=== PATIENT | female | born 1985 | race Caucasian/White ===

== ENCOUNTER 2024-07-29 06:45 | Day surgery (SDC) | payer BC ==
[2024-07-22 15:30] VITALS: BP 116/80
[~2024-07-29] VITALS: Ht 167.6 cm; Wt 73.9 kg
[~2024-07-29 06:45] MED LIST: DOXYCYCLINE HY100 MG PO; ISENTRESS400 MG PO; LACTATED RINGER'S 1,000 ML IV SCH; MOTRIN IB200 MG PO; MULTI VITAMIN1 EACH PO; NORCO 5-325 TA1 EACH PO; PRENATAL TABLE1 EAC1 PO; SYNTHROID50 MCG PO; TRUVADA 200 MG1 EACH PO
[2024-07-29 06:56] VITALS: BP 104/67
[2024-07-29] MEDS ORDERED: IBLOOD GLUCOSE TEST STRIP 1 EA TEST VI PRN ×2 (07:00→10:30)
[2024-07-29] MEDS ORDERED: METOCLOPRAMIDE HCL 10 MG/2 ML SDV IV SCH (07:00)
[2024-07-29] MEDS ORDERED: FAMOTIDINE 20 MG/ 2 ML VIAL IV SCH (07:00)
[2024-07-29] MEDS ORDERED: LIDOCAINE HCL 1% 5 ML SDV INJ ONE (07:00)
--- NOTE | 2024-07-29 07:14 | NUR ---
PT REQUESTED NO VISIT. DID NOT ENTER ROOM, PROVIDED PRAYER.
[2024-07-29] MEDS ORDERED: DEXAMETHASONE SOD PHOS 4 MG/ML VIAL ONE (07:55)
[2024-07-29] MEDS ORDERED: KETOROLAC TROMETHAMINE 30 MG/ML VIAL ONE (07:55)
[2024-07-29] MEDS ORDERED: MIDAZOLAM HCL 2 MG/2 ML VIAL ONE (07:55)
[2024-07-29] MEDS ORDERED: propofoL 200 MG/20 ML VIAL ONE (07:55)
[2024-07-29] MEDS ORDERED: ondansetron HCL 4 MG/2 ML VIAL ONE (07:55)
[2024-07-29] MEDS ORDERED: fentaNYL citrate 100 MCG/2 ML VIAL ONE (07:56)
[2024-07-29] MEDS ORDERED: SODIUM CHLORIDE 0.9% 20 ML IV ONE (07:57)
[2024-07-29] MEDS ORDERED: LIDOCAINE HCL 2% 5 ML SDV ONE (07:57)
[2024-07-29] MEDS ORDERED: SEVOFLURANE 250 ML BTL INH ONE (08:38)
[2024-07-29] MEDS ORDERED: ROCURONIUM BROMIDE 50 MG/5 ML SYR ONE (08:45)
[2024-07-29] MEDS ORDERED: SUGAMMADEX SODIUM 200 MG/2 ML ML ONE (08:45)
[2024-07-29] MEDS ORDERED: dexmedeTOMIDine HCl 200 MCG/2 ML VIAL ONE (08:48)
[2024-07-29] MEDS ORDERED: ePHEDrine sulfate 50 MG/ML AMP ONE (09:03)
[2024-07-29] MEDS ORDERED: KETAMINE in NS 50 MG/5 ML SYR ONE (09:20)
[2024-07-29] MEDS ORDERED: ACETAMINOPHEN 1,000 MG/100 ML VIAL ONE (10:01)
[2024-07-29] MEDS ORDERED: MORPHINE SULFATE 10 MG/ML VIAL IV PRN (10:15)
[2024-07-29] MEDS ORDERED: METOCLOPRAMIDE HCL 10 MG/2 ML SDV IV PRN (10:15)
[2024-07-29] MEDS ORDERED: PROCHLORPERAZINE EDISYLATE 10 MG/2 ML VIAL IV PRN (10:15)
[2024-07-29] MEDS ORDERED: ondansetron HCL 4 MG TAB PO PRN (10:15)
[2024-07-29] MEDS ORDERED: NALOXONE HCL 0.4 MG SYR IV PRN ×2 (10:15→10:30)
[2024-07-29] MEDS ORDERED: MAGNESIUM HYDROXIDE/AL HYDROX 30 ML CUP PO PRN (10:15)
[2024-07-29] MEDS ORDERED: IBUPROFEN 800 MG TAB PO PRN (10:15)
[2024-07-29] MEDS ORDERED: LACTATED RINGER'S 1,000 ML IV SCH (10:15)
[2024-07-29] MEDS ORDERED: FAMOTIDINE 20 MG TAB PO PRN (10:15)
[2024-07-29] MEDS ORDERED: ondansetron HCL 4 MG/2 ML VIAL IV PRN ×2 (10:15→10:30)
[2024-07-29] MEDS ORDERED: OXYCODONE/APAP 5/325 TAB PO PRN (10:15)
[2024-07-29] MEDS ORDERED: fentaNYL citrate 50 MCG/ML SDV IV PRN (10:30)
--- NOTE | 2024-07-29 10:30 | NUR ---
07/29/24 1030 Sheets,Rachel 1012 PT ARRIVED TO PACU IN 6L VIA MASK, RESP EVEN AND UNLABORED. CHIN LIFT USED TO MAINTAIN AIRWAY, HEAD MOVED AND CHIN LIFT NO LONGER NEEDED. 1016 PT WOKE TO TACTILE STIMULI AND O2 MASK REMOVED. PT REORIENTED TO PACU AND REPORTS 1/10 "CRAMPING" PAIN THAT IS TOLERBALE AT THIS TIME. 1028 HOB INCREASED PER REQUEST, WARM AIR AND BLACKETS GIVEN PER REQUEST. PT RESTING IN BED AND DENEIS CONCERNS.
[2024-07-29 10:43] VITALS: BP 98/55
--- NOTE | 2024-07-29 10:45 | NUR ---
ZENON 1040: PT IS BACK TO DS FROM PACU. SHE RETURNS AT HER BASELINE. SHE REPORTS MINIMAL PAIN 11/05. IS AT THE BEDSIDE. CALL LIGHT WITHIN REACH. WATER AND CRACKERS ON BEDSIDE TABLE. NO ADDITIONAL NEEDS AT THIS TIME.
[2024-07-29 11:43] VITALS: BP 97/56
--- NOTE | 2024-07-29 12:09 | NUR ---
LE 1140: PT IS DOING WELL. SHE IS TOLERATING WATER AND CRACKERS. SHE INDICATES THAT SHE WOULD LIKE TO GET UP TO USE THE BATHROOM. LE 1145: PT IS ASSISTED UP OOB TO THE BATHROOM WITH STAND BY ASSIST. LE 1147: PT IS ABLE TO VOID 400MLS OF PALE YELLOW URINE. SHE HAS MET ALL DC CRITERIA AND INDICATES THAT SHE WOULD LIKE TO GO HOME. PT IS EDUCATED ON HOW TO BEST DRESS HERSELF AND TO OPEN HER CURTAIN WHEN READY. LE 1156: PT AND ARE GIVEN WRITTEN AND VERBAL DC INSTRUCTIONS. THEY BOTH VERBALIZE UNDERSTANDING. NO QUESTIONS AT THIS TIME. LE 1200: PT IS TAKEN TO PERSONAL VEHICLE VIA WC. SHE IS ABLE TO TRANSFER HERSELF FROM WC TO VEHICLE WITHOUT ISSUES.
--- NOTE | 2024-08-02 07:06 | OR ---
[facility] [address], [place] [address] Signed DATE OF OPERATION: 07/29/2024 SURGEON: Jyoti Cha MD PREOPERATIVE DIAGNOSIS: Desire for risk reducing bilateral salpingectomy. POSTOPERATIVE DIAGNOSIS: Desire for risk reducing bilateral salpingectomy. PROCEDURE: Laparoscopy with bilateral salpingectomy. ANESTHESIA: General ET. ESTIMATED BLOOD LOSS: Minimal. DRAINS: None. INDICATIONS AND FINDINGS: The patient is 39-year-old female, currently using Mirena for control and has done well with this, but is interested in the risk reducing bilateral salpingectomy. At the time of surgery, the pelvis appeared normal other than some scarring related to her prior sections. DESCRIPTION OF PROCEDURE: The patient was prepped and draped in the dorsal lithotomy position. An open-sided speculum was placed and the anterior lip of the cervix was visualized and grasped with single-tooth tenaculum. A Hulka clamp was then placed and the tenaculum removed. Attention was directed above. The infraumbilical area was then identified and injected with 0.5% Marcaine plain. Each layer was then serially elevated, incised until the fascia was opened and identified and stay sutures of 0 Vicryl were placed. The peritoneum was opened bluntly. The Albina cannula was then placed and the balloon inflated. Placement of the scope confirmed proper positioning. The pelvis was visualized and the planned procedure appeared appropriate. The secondary ports were then placed. These were placed laterally slightly below the level of the umbilicus. Each of these areas was transilluminated, injected with the Marcaine, incision made with Electronically Signed By: JYOTI CHA MD 08/02/24 0706 PATIENT NAME: SHANTEL ALCAZAR OPERATIVE REPORT DATE OF : 81 REPORT #: [id number] PHYSICIAN: JYOTI CHA MD PCP: RONDA SAUCEDO MD REPORT IS CONFIDENTIAL AND NOT TO BE RELEASED WITHOUT AUTHORIZATION [facility] [address], [place] [address] Signed a knife and the trocars placed under direct vision. Following this, the patient's right tube was grasped and the LigaSure [place] device was used to serially coagulate and divide the mesosalpinx from the fimbriated end to the cornu. There was some bleeding along the mesosalpinx and this was controlled with LigaSure device. The specimen was retrieved. Attention was then directed to the patient's left side and the same procedure was carried out. Again, the tube was removed from the fimbriated end to the cornu. Following this, there was still a little bit of bleeding on the patient's right side and monopolar cautery was used with good results just next to the cornu. The abdomen was irrigated, inspected and good hemostasis was noted. The instruments were removed from the abdomen after allowing as much CO2 as possible to escape. The fascial incision of the umbilicus was re-identified and closed with a running suture of 0 Vicryl. The skin incisions were closed with subcuticular sutures of 3-0 Vicryl. Attention was directed down below and the instruments were removed. There was initially some bleeding from the tenaculum site and this responded to pressure. She was taken to the recovery room in good condition. Jyoti Cha MD PJW/MODL /[id number] Copies: ~ Electronically Signed By: JYOTI CHA MD 08/02/24 0706 PATIENT NAME: SHANTEL ALCAZAR OPERATIVE REPORT DATE OF : 81 REPORT #: [id number] PHYSICIAN: JYOTI CHA MD PCP: RONDA SAUCEDO MD REPORT IS CONFIDENTIAL AND NOT TO BE RELEASED WITHOUT AUTHORIZATION
--- NOTE | 2024-08-02 15:49 | PATH ---
[facility] [address] [place] [facility] [place] [address] Signed SPECIMEN(S): A FALLOPIAN TUBES, BILATERAL SPECIMEN SOURCE: A. FALLOPIAN TUBES, BILATERAL CLINICAL HISTORY: Prophylactic, risk reducing GROSS: The specimen, labeled and designated "Rodriguez, L, bilateral fallopian tubes," is received in formalin and consists of for tubular segments of fallopian tube and one with a attached fimbriated end. The fallopian tube with attached fimbriated end measures 2.5 x 0.4 cm. The second tubular fragment measures 3.7 x 0.4 cm. The third tubular fragment measures 6.0 x 0.4 cm. The fourth tubular fragment measures 0.9 x 0.4 cm. All of the tubular fragments are sectioned to reveal grossly unremarkable lumen. [employer] section of the tube with attached fimbriated and submitted in cassette A1 while delivery representative sections of the remainder of the fallopian tube fragment submitted in cassette A2. JM (under the direct supervision of a pathologist) The Gross Description was prepared using a voice recognition system. The report was reviewed for accuracy; however, sound-alike word errors, addition and/or deletions may occur. If there is any question about this report, please contact Client Services. Prophylactic, risk reducing FINAL PATHOLOGIC DIAGNOSIS: Bilateral fallopian tubes: - Two segments of benign fimbriated oviduct. JVR:clv MICROSCOPIC EXAMINATION: Histologic sections of all submitted blocks are examined by light microscopy. These findings, together with the gross examination, support the pathologic diagnosis. PERFORMING LABORATORY: Technical component was performed by [facility], [address] [place] [id number] (CLIA# [id number]). PATIENT NAME: SHANTEL RODRIGUEZ PATHOLOGY DATE OF : 81 REPORT #: [id number] PHYSICIAN: [facility] PCP: RONDA SAUCEDO MD REPORT IS CONFIDENTIAL AND NOT TO BE RELEASED WITHOUT AUTHORIZATION [address] [address] Signed Diagnostician: Vargas Jeter MD Pathologist Electronically Signed 08/02/2024 Copies: ~ PATIENT NAME: SHANTEL RODRIGUEZ PATHOLOGY DATE OF : 81 REPORT #: [id number] PHYSICIAN: [facility] PCP: RONDA SAUCEDO MD REPORT IS CONFIDENTIAL AND NOT TO BE RELEASED WITHOUT AUTHORIZATION
== END 2024-07-29 12:00 | disposition home or self-care (01) ==
LOC: DS 06:45
PROVIDERS: ATTEND Obstetrics & Gynecology
PROC: 0UT74ZZ Resection of Bilateral Fallopian Tubes, Percutaneous Endoscopic Approach (ICD-10-PCS; principal; 2024-07-29 09:00)
DX: Z40.03 Encounter for prophylactic removal of fallopian tube(s) (principal); E03.9 Hypothyroidism, unspecified; Z79.890 Hormone replacement therapy; Z88.2 Allergy status to sulfonamides; Z97.5 Presence of (intrauterine) contraceptive device
CPT/HCPCS: 00840; J0131; J1100; J1885; J2001; J2250; J2405; J2704; J2765; J3010; J3490; J7121